=== PATIENT | male | born 1965 | race Caucasian/White ===

== ENCOUNTER 2020-05-27 10:32 | Emergency (ER) | payer OTHER ==
[2020-05-27] MEDS ORDERED: KETOROLAC TROMETHAMINE 30 MG/1 ML VIAL IVPUSH ONE (10:39)
[2020-05-27] MEDS ORDERED: ONDANSETRON 4 MG/2 ML VIAL IVPUSH ONE (10:39)
[2020-05-27] MEDS ORDERED: SODIUM CHLORIDE 1,000 ML IV STA (10:39)
[2020-05-27] MEDS ORDERED: KETOROLAC TROMETHAMINE 30 MG/1 ML VIAL ONE (10:40)
[2020-05-27 10:41] VITALS: TEMP 97.8; BMI 27.6
[2020-05-27] MEDS ORDERED: KETOROLAC TROMETHAMINE 15 MG/ML VIAL IVPUSH ONE (10:42)
--- NOTE | 2020-05-27 10:42 | PDOC ---
Documentation entered by Brittany Lindsay SCRIBE, acting as scribe for Tamica Roy MD. Tamica Roy MD: This documentation has been prepared by the Angélica denise Adrianna, SCRIBE, under my direction and personally reviewed by me in its entirety. I confirm that the documentation accurately reflects all work, treatment, procedures, and medical decision making performed by me. History of Present Illness - General Chief Complaint: Pain Stated Complaint: KIDNEY STONE History Source: Patient Exam Limitations: No Limitations - History of Present Illness Initial Comments: The patient is a 55 year old male, with a significant PMH of HLD, kidney stones, and pre-DM, presenting with right inguinal and flank pain since this morning. Patient complains of right inguinal/groin pain that radiates to his right flank for 1.5 hours. He describes the pain as sharp, constant, and a 10/10 in nature. Patient endorses associated diaphoresis, nausea and states he tried to vomit but couldnt as he didnt have anything in his stomach. Patient has had kidney stones in the past, and notes this feels like his prior episodes without known complications. His last episode was in 2017, and he notes he passed the stone at that time. His pain was persistent this morning, so he went to [facility] and was sent to [facility] for further evaluation. Denies fever, chills, chest pain, SOB, palpitation, dizziness, weakness, N, V, D, abdominal pain, bladder and bowel problems, focal weakness/paresthesias, leg swelling/pain, rash. No sick contacts or travel. No new changes in medications. No suspicious food intake Allergies: None Past Medical History/PSH: HLD, kidney stones, pre-DM, and right RCR Social history: Lives with family. No tobacco, ETOH or drug use. Meds: as documented in EMR Family history: noncontributory PMD: Dr. Maharaj Urologist: Dr. Maciel Review of systems Constitutional: +diaphoretic. no fevers or chills. No weakness HEENT: no headache or dizziness. No congestion. No visual/hearing disturbances. CVS: no cp or syncope. Resp: no sob. No cough. Gastrointestinal: +nausea. +dry-heaving. +flank pain. no abdominal pain, nausea, vomiting, diarrhea. Genitourinary: +right inguinal/testicular pain. no urinary sx, hematuria. no urgency or frequency, dysuria. MUSCULOSKELETAL: No joint pain and swelling. No neck pain. SKIN: no redness or skin changes, no discharge, no rash. No wounds. Hematologic: no easy bruising/bleeding. NEUROLOGIC: No headache, dizziness, LOC or altered mental status. No weakness, numbness or tingling. Psych: no anxiety or depression Allergic/Immunologic: no allergies All other systems reviewed and negative, or as documented in HPI. Physical exam General: +Mild distress 2/2 pain and colicky. awake and alert. HEENT: NCAT, PERRL, EOMI, clear conjunctiva, anicteric, moist mucus membranes, clear oropharynx, no oral lesions.. Neck: neck supple, FROM Resp: CTAB, normal and even respirations, no respiratory distress CVS: RRR, no murmurs, 2+ peripheral pulses throughout, no peripheral edema Abdomen: +right CVAT. soft, NTND, no rebound or guarding. no RLQ tenderness, no Riddle's sign. Back: nontender, normal inspection and ROM MSK: no edema, NGUYEN x4, ROM intact. No clubbing or cyanosis. normal bulk and tone. Extremities: no calf tenderness Neuro: alert, oriented appropriately; no focal neurologic deficits Psych: Calm and cooperative Skin: warm and well perfused, cap refill <2 sec, normal color 05/27/20 14:01 05/27/20 14:11 Past History - Medical History Allergies/Adverse Reactions: Allergies Allergy/AdvReac Type Severity Reaction Status Date / Time No Known Allergies Allergy Unverified 05/27/20 10:41 Home Medications: Ambulatory Orders Cephalexin Monohydrate [Keflex -] 500 mg PO BID #14 capsule 05/27/20 Ibuprofen 600 mg PO QID PRN #20 tablet 05/27/20 Ondansetron [Zofran *Odt*] 4 mg SL TID PRN #9 od.tablet 05/27/20 Oxycodone HCl 10 mg PO TID PRN #9 tablet MDD 3 05/27/20 Tamsulosin HCl [Flomax -] 0.4 mg PO DAILY #7 cap 05/27/20 Heart Score/ECG Review #1 ECG reviewed & interpreted by me at: 11:10 General ECG Interpretation: Sinus Rhythm, Normal Rate, Normal Intervals 05/27/20 11:26 EKG normal sinus rhythm 66 bpm, no interval abnormalities, narrow QRS, ST and T wave segments and morphology normal. ED Treatment Course - LABORATORY CBC & Chemistry Diagram: 05/27/20 10:30 05/27/20 10:30 Medical Decision Making - Medical Decision Making 05/27/20 10:41 Vital Signs Temp Pulse Resp BP Pulse Ox 97.8 F 68 17 158/90 100 05/27/20 10:38 05/27/20 10:38 05/27/20 10:38 05/27/20 10:38 05/27/20 10:38 vitals signs reviewed, wnl hypertensive no tachy no respiratory distress high suspicion for ureteral colic, prior kidney stone that was uncomplicated and passed stone unremarkably. DDx abdominal pain: Renal colic, biliary colic, metabolic/electrolyte derangements. GERD, PUD, esophageal spasm, pancreatitis, hepatitis, constipation, colitis, gastroenteritis, cholecystitis, UTI, pyelonephritis, medication side effect, hernia, appendicitis, diverticulitis. msk strain, mesenteric adenitis, psoas abscess. - no RUQ or s/s to suggest biliary - no RLQ tenderness to suggest appy. - no peritoneal or abdominal sx +Right CVAT is noted, appearing colicky - suspicious for ureteral colic. Clinically the patient presents with symptomatic ureterolithiasis (kidney stones), similar sx as prior kidney stone that was uncomplicated. IV pain medications, antiemetics, and IV fluids were given. A renal and testicular/scrotal sono was obtained for concern for a possible obstructing kidney stone and to rule out other pathologic conditions including testicular pathology/infection/torsion. US confirmed revealed hydronephrosis, no stones visualized. The patient's labs were significant for normal wbc ct, normal Cr and lytes. UA with blood, ?wbcs and rbcs - f/u urine culture, treat with keflex pre-emptively in case of concurrent infection . With pain medication the patient improved significantly. The patient is referred to Dr Maciel for follow up and is discharged with oral narcotics for pain control, Flomax, antiemetics, and given the following return precautions: Fever > 100.5, pain not controlled with narcotics, worsening pain, dehydration, vomiting or any other concerns and to strain the urine. NSAIDS/tylenol for mild to moderate pain, rx oxycodone PRN for more severe pain. zofran for nausea, adequate hydration and oral fluids and air conditioning in hot weather. urine strainer to catch urine. 05/27/20 13:19 05/27/20 14:02 05/27/20 14:12 Discharge - Discharge Information Problems reviewed: Yes Clinical Impression/Diagnosis: Hydronephrosis of right kidney, Ureteral colic Condition: Improved Disposition: HOME - Admission No - Additional Discharge Information Prescriptions: Tamsulosin HCl [Flomax -] 0.4 mg PO DAILY #7 cap Ibuprofen 600 mg PO QID PRN #20 tablet PRN Reason: Pain Level 4 - 6 Cephalexin Monohydrate [Keflex -] 500 mg PO BID #14 capsule Oxycodone HCl 10 mg PO TID PRN #9 tablet MDD 3 PRN Reason: Severe Pain Ondansetron [Zofran *Odt*] 4 mg SL TID PRN #9 od.tablet PRN Reason: nausea vomiting - Follow up/Referral Referrals: Donavan Maharaj MD [Primary Care Provider] - Dionte Maciel MD [Staff Physician] - - Patient Discharge Instructions Patient Printed Discharge Instructions: DI for Kidney Stones Additional Instructions: Discharge for patients: Your kidney ultrasound was significant for swelling of collecting system, suggestive of kidney stone/obstruction your testicular ultrasound was unremarkable, there is some nonspecific fluid around the testicles, no torsion or twisting of the testicle or signs of infection there Drink plenty of water/fluids, avoid caffeine or alcohol Strain all urine for the next 1-2 days and save any stone for analysis Ibuprofen/naproxen/acetaminophen as needed for fijp-yc-[id number] pain. Use Motrin (also called Ibuprofen or Advil) 400 mg every 6 hours as needed for pain. If you have any stomach discomfort while taking Motrin, you can use TUMS to help. Flomax at nighttime to facilitate the passage of your suspected kidney stone, take at nighttime before bedtime. Oxycodone every 6 hours as needed for severe pain; Please do not drive or operate heavy machinery while on this medication because it can impair your judgement. This is a very addictive medication, do not take it unless you ab solutely have to. take keflex twice a day x 1 week for possible infection, follow up on your urine culture Return to ER if you experience persistent pain/vomiting/fever/dehydration, difficulty urinating or inability to tolerate oral intake. Follow-up with your primary doctor and/or Dr Maciel, your urologist, within the next 2-3 days. Urologist follow up this week, referral given as well. (we will give you a list of urologists, but make sure they accept your insurance). Please bring your labs and imaging with you to your appointment. - Post Discharge Activity
[2020-05-27 11:16] LABS: BASO % 0.8 % (0-2.0); EOS % 4.2 % (0-4.5); HEMATOCRIT 48.8 % (35.4-49); HEMOGLOBIN 16.2 GM/dL (11.7-16.9); LYMPH % 17.1 % (8-40); MCH 28.4 pg (25.7-33.7); MCHC 33.2 g/dl (32.0-35.9); MEAN CELL VOLUME 85.5 fl (80-96); MEAN PLT VOLUME 8.4 fl (7.5-11.1); MONO % 8.9 % (3.8-10.2); PLATELET COUNT 282 K/MM3 (134-434); RBC 5.71 M/mm3 (4.00-5.60); RDW 13.4 % (11.9-15.9); WHITE BLOOD COUNT 8.1 K/mm3 (4.0-10.0)
[2020-05-27 11:21] LABS: INR 0.97 (0.83-1.09); PROTHROMBIN TIME (PATIENT) 11.5 SEC (9.7-13.0)
[2020-05-27 11:23] LABS: URINE APPEARANCE CLOUDY; URINE BILIRUBIN NEGATIVE (NEGATIVE); URINE COLOR DK YELLOW; URINE GLUCOSE (UA) 1+ (NEGATIVE); URINE KETONE TRACE (NEGATIVE); URINE LEUK ESTERASE NEGATIVE (NEGATIVE); URINE NITRITE NEGATIVE (NEGATIVE); URINE PROTEIN 1+ (NEGATIVE)
[2020-05-27 11:24] LABS: ACTIVATED PTT 29.7 SECONDS (25.2-36.5)
[2020-05-27] MEDS ORDERED: morphine CARPU-JECT 4 MG/1 ML DISP.SYRIN IVPUSH ONE (11:24)
[2020-05-27 11:46] LABS: ALBUMIN 4.2 g/dl (3.4-5.0); BILIRUBIN,TOTAL 0.7 mg/dL (0.2-1); BLOOD UREA NITROGEN 25.4 mg/dL (7-18); CALCIUM 9.3 mg/dL (8.5-10.1); POTASSIUM 4.4 mmol/L (3.5-5.1)
[2020-05-27] MEDS ORDERED: morphine SULFATE 4 MG/ML VIAL ONE (11:49)
--- NOTE | 2020-05-27 12:07 | EKG ---
Test Reason : Blood Pressure : / mmHG Vent. Rate : 066 BPM Atrial Rate : 066 BPM P-R Int : 138 ms QRS Dur : 102 ms QT Int : 396 ms P-R-T Axes : 033 043 053 degrees QTc Int : 415 ms NORMAL SINUS RHYTHM INCOMPLETE RIGHT BUNDLE BRANCH BLOCK BORDERLINE ECG Confirmed by MD CARROLL, DIOMEDES ([id number]) on 05/27/2020 12:07:08 PM Referred By: Confirmed By:DIOMEDES HODGES MD
[2020-05-27 12:20] LABS: EPI CELLS 6.2 /uL (0-25.1); HYALINE CASTS 2.95 /uL (0-3.1); URINE BACTERIA 8.6 /uL (0-1359); URINE RBC 22.2 /uL (0-23.9)
[2020-05-27 12:22] LABS: URINE CRYSTALS NON SEEN /hpf
[2020-05-27 13:58] VITALS: BP 147/74; PULSE 78
== END 2020-05-27 13:58 | disposition home or self-care (01) ==
LOC: JER 10:32
PROC: 3E033NZ Introduction of Analgesics, Hypnotics, Sedatives into Peripheral Vein, Percutaneous Approach (ICD-10-PCS; principal; 2020-05-27)
PROC: 3E033GC Introduction of Other Therapeutic Substance into Peripheral Vein, Percutaneous Approach (ICD-10-PCS; 2020-05-27)
PROC: 3E0337Z Introduction of Electrolytic and Water Balance Substance into Peripheral Vein, Percutaneous Approach (ICD-10-PCS; 2020-05-27)
DX: N20.0 Calculus of kidney (principal); N23 Unspecified renal colic
CPT/HCPCS: 36415; 76775-TC; 76870-TC; 80053; 81003; 83690; 85025; 85610; 85730; 86850; 86900; 86901; 87086; 93005; 93010; 99285-25

== ENCOUNTER 2020-05-29 06:07 | Emergency (ER) | payer OTHER ==
[2020-05-29] MEDS ORDERED: SODIUM CHLORIDE 0.9% 500 ML INFUS.BAG IV ONE (06:24)
[2020-05-29] MEDS ORDERED: KETOROLAC TROMETHAMINE 15 MG/ML VIAL IVPUSH ONE (06:24)
--- NOTE | 2020-05-29 06:24 | PDOC ---
Attending Attestation - Resident Resident Name: Nic Muñoz - ED Attending Attestation I have performed the following: I have examined & evaluated the patient, The case was reviewed & discussed with the resident, I agree w/resident's findings & plan, Exceptions are as noted - HPI HPI: 05/29/20 07:39 See resident HPI - Physicial Exam PE: 05/29/20 07:39 Agree with documented exam - Medical Decision Making 05/29/20 07:39 Renal colic in patient with prior hx of nephrolithiasis, seen 2 days ago, diagnosed with same and sent to OP f/u Scheduled for OP ct today but presented early 2/2 pain f/u labs, ua, CT ap nc analgesia dispo per clinical course touch base with Dr. Maciel once studies are resulted Discharge - Discharge Information Problems reviewed: Yes Clinical Impression/Diagnosis: Right flank pain - Follow up/Referral Referrals: Dionte Maciel MD [Primary Care Provider] - - Patient Discharge Instructions Additional Instructions: You were seen in the ER today for flank pain. The CT scans show that you passed the stone. I spoke to Dr. Maciel's associate about your symptoms and findings. Please see Dr. Maciel in office next week. Continue taking the Keflex (antibiotic) that was prescribed. Drink plenty of water. Come back to the ER if you have worsening pain, have difficulty passing urine, have blood in the urine, fever or if any new or concerning symptom develops. Thank you - Post Discharge Activity
--- NOTE | 2020-05-29 06:30 | PDOC ---
History of Present Illness - General Stated Complaint: PAIN - History of Present Illness Initial Comments: The pt is a 55M w/ a history of nephrolithiasis and NIDDM who presents for evaluation of persistent R flank pain. Pt states his pain feels similar to his previous renal stone pain. It is intermittent, R flank/inguinal, sharp, not exacerbated by anything he can identify, and somewhat alleviated by oxycodone. He states he was scheduled for a CT today by his Urologist, Dr. Maciel, but was unable to tolerate the pain until that time. He endorses hematuria but denies dysuria or difficulty with urination. Denies fevers/chills, REYES, vision changes, chest pain, trouble breathing, diarrhea, blood in stool, or changes in sensation. 05/29/20 06:24 Past History - Medical History Allergies/Adverse Reactions: Allergies Allergy/AdvReac Type Severity Reaction Status Date / Time No Known Allergies Allergy Unverified 05/29/20 06:40 Home Medications: Ambulatory Orders Cephalexin Monohydrate [Keflex -] 500 mg PO BID #14 capsule 05/27/20 Ibuprofen 600 mg PO QID PRN #20 tablet 05/27/20 Ondansetron [Zofran *Odt*] 4 mg SL TID PRN #9 od.tablet 05/27/20 Oxycodone HCl 10 mg PO TID PRN #9 tablet MDD 3 05/27/20 Tamsulosin HCl [Flomax -] 0.4 mg PO DAILY #7 cap 05/27/20 COPD: No Kidney Stones: Yes - Psycho-Social/Smoking History Smoking History: Never smoked Have you smoked in the past 12 months: No Review of Systems - Review of Systems Able to Perform ROS?: Yes Comments:: GENERAL/CONSTITUTIONAL: No fever or chills. No weakness HEAD, EYES, EARS, NOSE AND THROAT: No change in vision. No change in hearing. No sore throat CARDIOVASCULAR: No chest pain or shortness of breath RESPIRATORY: Denies cough, hemoptysis GASTROINTESTINAL: No nausea, vomiting, diarrhea or constipation GENITOURINARY: per HPI MUSCULOSKELETAL: No joint or muscle swelling or pain. No neck or back pain SKIN: No rash NEUROLOGIC: No headache, vertigo, loss of consciousness, or change in strength/sensation ENDOCRINE: No increased thirst. No abnormal weight change HEMATOLOGIC/LYMPHATIC: No anemia, easy bleeding, or history of blood clots ALLERGIC/IMMUNOLOGIC: No hives or skin allergy 05/29/20 06:30 Is the patient limited Korean proficient: No *Physical Exam - Physical Exam GENERAL: Awake, alert, and oriented to person/place/time, in no acute distress HEAD: No signs of trauma, normocephalic, atraumatic EYES: PERRLA, EOMI, sclera anicteric, conjunctiva clear ENT: Hearing grossly normal, nares patent, oropharynx clear without exudates. Moist mucosa LUNGS: No distress, speaks in full sentences, clear to auscultation bilaterally HEART: Regular rate and rhythm, normal S1 and S2, no murmurs appreciated, peripheral pulses normal and equal bilaterally ABDOMEN: Soft, protuberant, R flank/inguinal TTP w/o rebound or guarding, normoactive bowel sounds EXTREMITIES: Normal inspection, Normal range of motion, no edema. No clubbing or cyanosis NEUROLOGICAL: Cranial nerves II through XII grossly intact. Normal speech, no focal sensorimotor deficits SKIN: Warm, Dry 05/29/20 06:31 ED Treatment Course - LABORATORY CBC & Chemistry Diagram: 05/29/20 06:29 05/29/20 06:29 - RADIOLOGY Radiology Studies Ordered: Category Date Time Status SPIRAL- RENAL-STONE CT [CT] Stat CT Scan 05/29/20 06:24 Ordered Medical Decision Making - Medical Decision Making The pt is a 55M w/ a history of nephrolithiasis and NIDDM who presents for evaluation of persistent R flank pain likely 2/2 nephrolithiasis. Ddx: consider UTI/pyelo, infected stone, obstructing stone. Not likely appendicitis given pt's history ED Course CMP, CBC, UA, UCx CT A&P IVF, Toradol 15mg IV once for pain 05/29/20 06:32 Pt signed out to day team Discharge - Discharge Information Problems reviewed: Yes Clinical Impression/Diagnosis: Right flank pain - Follow up/Referral Referrals: Dionte Maciel MD [Primary Care Provider] - - Patient Discharge Instructions Additional Instructions: You were seen in the ER today for flank pain. The CT scans show that you passed the stone. I spoke to Dr. Maciel's associate about your symptoms and findings. Please see Dr. Maciel in office next week. Continue taking the Keflex (antibiotic) that was prescribed. Drink plenty of water. Come back to the ER if you have worsening pain, have difficulty passing urine, have blood in the urine, fever or if any new or concerning symptom develops. Thank you - Post Discharge Activity
[2020-05-29] MEDS ORDERED: KETOROLAC TROMETHAMINE 15 MG/ML VIAL ONE (06:36)
[2020-05-29 06:42] VITALS: BMI 25.8
[2020-05-29 06:52] LABS: BASO % 0.5 % (0-2.0); EOS % 2.7 % (0-4.5); HEMATOCRIT 45.7 % (35.4-49); HEMOGLOBIN 15.2 GM/dL (11.7-16.9); LYMPH % 15.2 % (8-40); MCH 28.4 pg (25.7-33.7); MCHC 33.1 g/dl (32.0-35.9); MEAN CELL VOLUME 85.7 fl (80-96); MEAN PLT VOLUME 8.2 fl (7.5-11.1); MONO % 9.8 % (3.8-10.2); NEUT % 71.8 % (42.8-82.8); PLATELET COUNT 247 K/MM3 (134-434); RBC 5.33 M/mm3 (4.00-5.60); RDW 13.5 % (11.9-15.9); WHITE BLOOD COUNT 12.2 K/mm3 (4.0-10.0)
[2020-05-29 07:03] LABS: EPI CELLS 10 /uL (0-25.1); HYALINE CASTS 2 /uL (0-3.1); URINE APPEARANCE CLOUDY; URINE BACTERIA 4 /uL (0-1359); URINE BILIRUBIN NEGATIVE (NEGATIVE); URINE COLOR YELLOW; URINE GLUCOSE (UA) 1+ (NEGATIVE); URINE KETONE NEGATIVE (NEGATIVE); URINE LEUK ESTERASE TRACE (NEGATIVE); URINE NITRITE NEGATIVE (NEGATIVE); URINE PROTEIN 1+ (NEGATIVE); URINE UROBILINOGEN 0.2 mg/dL (0.2-1.0); URINE WBC 41 /uL (0-25.8)
--- NOTE | 2020-05-29 07:15 | PDOC ---
*Physical Exam - Vital Signs Last Vital Signs Temp Pulse Resp BP Pulse Ox 98.4 F 70 20 162/98 98 05/29/20 06:41 05/29/20 06:41 05/29/20 06:41 05/29/20 06:41 05/29/20 06:41 ED Treatment Course - LABORATORY CBC & Chemistry Diagram: 05/29/20 06:29 05/29/20 06:29 - ADDITIONAL ORDERS Additional order review: Laboratory Results 05/29/20 06:29 Urine Color Yellow Urine Appearance Cloudy Urine pH 5.0 Ur Specific [place] 1.021 Urine Protein 1+ H Urine Glucose (UA) 1+ H Urine Ketones Negative Urine Blood 3+ H Urine Nitrite Negative Urine Bilirubin Negative Urine Urobilinogen 0.2 Ur Leukocyte Esterase Trace Urine WBC (Auto) 41 Urine Casts (Auto) 2 U Epithel Cells (Auto) 10 Urine Bacteria (Auto) 4 05/29/20 06:29 RBC 5.33 MCV 85.7 MCHC 33.1 RDW 13.5 MPV 8.2 Neutrophils % 71.8 Lymphocytes % 15.2 Monocytes % 9.8 Eosinophils % 2.7 Basophils % 0.5 - Medications Given in the ED: ED Medications Discontinued Medications Generic Name Dose Route Start Last Admin Trade Name Freq PRN Reason Stop Dose Admin Ketorolac Tromethamine 15 mg 05/29/20 06:24 05/29/20 06:42 Toradol Injection - IVPUSH 05/29/20 06:25 15 mg ONCE ONE Administration Sodium Chloride 1,000 ml 05/29/20 06:24 05/29/20 06:41 Normal Saline - IV 05/29/20 06:25 1,000 ml ONCE ONE Administration Medical Decision Making - Medical Decision Making 05/29/20 07:13 sign out. 55y M with PMH of nephrolithiasis and NIDDM who presents for evaluation of persistent R flank pain. Pt was to get outpt CT today but came to ER due to pain. -given toradol and fluids. labs show mild leukocytosis. UA negative for infection. chem pending. CT pending. will call urology with results. 05/29/20 08:[address] showing mild right hydronephrosis and perinephric edema may be due to recently passed stone. pt still in pain. says pain in in the R testicle and goes up to the groin and to the kidney. denies n/v, denies testicular swelling or discharge. recent circumcision 04/2020 but no penile pain. exam negative for testicular tenderness, no penile discharge. genitalia appear normal. tenderness to deep palpation in RLQ. Mild CVA tenderness. will call urology with results morphine for pain control CTA abdomen for evaluation for possible dissection/aneurysm or renal infarct. urology aware. 05/29/20 19:50 CT shows r perinephric edema and mild hydronephrosis [place] passed stone. no other acute pathology. pt not in pain, feels better. discussed results. discussed results with urology. pt to f/u next week. continue taking Keflex. return precautions provided. DC home Discharge - Discharge Information Problems reviewed: Yes Clinical Impression/Diagnosis: Right flank pain Condition: Improved Disposition: HOME - Admission No - Follow up/Referral Referrals: Dionte Maciel MD [Primary Care Provider] - - Patient Discharge Instructions Additional Instructions: You were seen in the ER today for flank pain. The CT scans show that you passed the stone. I spoke to Dr. Maciel's associate about your symptoms and findings. Please see Dr. Maciel in office next week. Continue taking the Keflex (antibiotic) that was prescribed. Drink plenty of water. Come back to the ER if you have worsening pain, have difficulty passing urine, have blood in the urine, fever or if any new or concerning symptom develops. Thank you - Post Discharge Activity Vital Signs - Vital Signs Blood Pressure: 130/80 BP Location: Right Arm
[2020-05-29 07:23] LABS: ALBUMIN 3.6 g/dl (3.4-5.0); BILIRUBIN,TOTAL 0.3 mg/dL (0.2-1); BLOOD UREA NITROGEN 25.3 mg/dL (7-18); CALCIUM 9.1 mg/dL (8.5-10.1); POTASSIUM 4.6 mmol/L (3.5-5.1); TOT PROT 6.5 g/dl (6.4-8.2)
[2020-05-29] MEDS ORDERED: morphine CARPU-JECT 4 MG/1 ML DISP.SYRIN IVPUSH ONE (08:11)
[2020-05-29] MEDS ORDERED: MORPHINE SULFATE 2 MG/ML VIAL ONE (08:19)
[2020-05-29 12:08] LABS: URINE RBC 183.1 /uL (0-23.9)
[2020-05-29 12:45] VITALS: PULSE 76; TEMP 98.5
[2020-05-29 19:51] VITALS: BP 130/80
== END 2020-05-29 12:46 | disposition home or self-care (01) ==
LOC: JER 06:07
PROC: 3E033GC Introduction of Other Therapeutic Substance into Peripheral Vein, Percutaneous Approach (ICD-10-PCS; principal; 2020-05-29)
DX: R10.9 Unspecified abdominal pain (principal)
CPT/HCPCS: 36415; 74174-TC; 74176-TC; 80053; 81003; 85025; 87086; 99285-25; Q9967

== ENCOUNTER 2020-08-23 16:57 | Emergency (ER) | payer OTHER ==
[2020-08-23 17:04] VITALS: TEMP 97.3; BMI 26.5
--- OUTSIDE RECORDS SUMMARY | 2020-08-23 17:11 | XMS ---
:1965 Author Organization [facility] Support Name Relationship Address Phone N [employer] Unavailable [address] [place] [address] FRANTZ ELLIS [address] [place] [address] FRANTZ ELLIS Spouse [address] [place] [address] Re-disclosure Warning The records that you are about to access may contain information from federally- assisted alcohol or drug abuse programs. If such information is present, then the following federally mandated warning applies: This information has been disclosed to you from records protected by federal confidentiality rules (42 CFR part 2). The federal rules prohibit you from making any further disclosure of this information unless further disclosure is expressly permitted by the written consent of the person to whom it pertains or as otherwise permitted by 42 CFR part 2. A general authorization for the release of medical or other information is NOT sufficient for this purpose. The Federal rules restrict any use of the information to criminally investigate or prosecute any alcohol or drug abuse patient.The records that you are about to access may contain highly sensitive health information, the redisclosure of which is protected by Article 27-F of the [facility] Public Health law. If you continue you may haveaccess to information: Regarding HIV / AIDS; Provided by facilities licensed or operated by the [facility] Office of Mental Health; or Provided by the [facility] Office for People With Developmental Disabilities. If such information is present, then the following [facility] mandated warning applies: This information has been disclosed to you from confidential records which are protected by state law. State law prohibits you from making any further disclosure of this information without the specific written consent of the person to whom it pertains, or as otherwise permitted by law. Any unauthorized further disclosure in violation of state law may result in a fine or mcc sentence or both. A general authorization for the release of medical or other information is NOT sufficient authorization for further disclosure. Insurance Providers Payer name Policy type Policy ID Covered Covered green party's Policy P trinity / Coverage green party ID relationship to [employer] ormation type zurita CAPUTA [id number] 1 [employer]ALTH PLANS Results ID Date Data Source [id number] 08/12/2020 02:35:00 PM EDT [facility] Name Value Range Interpretation Code Description Data Carolann rce(s) Supporting Document(s ) SARS-COV-2 [facility] QL RED+PROBE This lab was ordered by CAYETANO adams nd reported by [email or web address]. ID Date Data Source [id number] 08/05/2020 12:15:00 AM EDT [facility] Name Value Range Interpretation Code Description Data Carolann rce(s) Supporting Document(s ) SARS-COV-2 [facility] QL RED+PROBE This lab was ordered by CAYETANO adams nd reported by [email or web address]. ID Date Data Source [id number] 04/09/2020 10:56:00 AM EDT [facility] Name Value Range Interpretation Code Description Data Carolann rce(s) Supporting Document(s ) COV2 [facility] This lab was ordered by CAYETANO adams nd reported by [employer] [place]. Procedure
--- NOTE | 2020-08-23 17:16 | PDOC ---
History of Present Illness - General Chief Complaint: Seizure Stated Complaint: SEIZURE Time Seen by Provider: 08/23/20 17:09 - History of Present Illness Initial Comments: HPI: 08/23/20 17:16 55 yo M PMH nephrolithiasis, NIDDM, R rotator cuff repair 15 years ago, presenting with syncope. Mr. Hauser states that he was sitting at his relative's house on the couch, pressing the right side of his neck because of a little tickle in his throat, woke up about a minute later without memory of passing out. This happened at approximately 1330. No post-ictal state. Never happened before. Currently, endorses only mild lightheadedness. Denies CP, SOB, N/V, fevers/chills, constipation/diarrhea. ROS: GENERAL/CONSTITUTIONAL: denies fever, chills, diaphoresis, generalized weakness HEAD, EYES, EARS, NOSE AND THROAT: denies rhinorrhea, nasal congestion NEUROLOGIC: denies headache, focal weakness, dizziness, mental status changes CARDIOVASCULAR: endorses lightheadedness and syncope. Denies chest pain, palpi tations, irregular heart rate, lightheadedness, peripheral edema RESPIRATORY: denies cough, shortness of breath, dyspnea with exertion, orthopnea, wheezing, stridor, hemoptysis GASTROINTESTINAL: denies abdominal pain, abdominal distension, nausea, vomiting, diarrhea, constipation, melena, hematochezia GENITOURINARY: denies dysuria, frequency, urgency, hesitancy, hematuria, flank pain, genital pain MUSCULOSKELETAL: denies myalgia, arthralgia, joint swelling, back pain, neck pain SKIN: denies rash, itching HEMATOLOGIC/IMMUNOLOGIC: denies easy bleeding, easy bruising, lymphadenopathy, frequent infections ENDOCRINE: denies unexplained weight gain, unexplained weight loss, heat intolerance, cold intolerance PSYCHIATRIC: denies anxiety, depression, suicidal or homicidal ideation, hallucinations PE: Gen: well-developed, well-nourished, NAD Neuro: AAOX4, CN II-XII intact HEENT: atraumatic, normocephalic, dry mucous membranes Neck: trachea midline, supple CV: regular rate, regular rhythm, no murmurs, rubs, or gallops Pulm: CTA b/l, no wheezing Abd: soft, non-distended, non-tender MSK: full ROM, intact pulses Extr: no edema, no deformities Skin: warm, dry MDM: Concern for potential ACS considering syncope. Was conducting carotid massage, may have been vagal response. - CBC, CMP - EKG, CXR - cardiac profile - reassess 08/23/20 18:24 CBC unconcerning. 08/23/20 18:27 EKG normal sinus at 77 bpm, WA 158, QRS 104, QTc 427. 08/23/20 18:52 Glucose 221, CMP otherwise unremarkable. Trop negative. Will give 1L LR, get repeat trop in 2 hours. 08/23/20 19:00 Patient signed out to night team, follow up repeat trop, likely dc afterwards. Past History - Medical History Allergies/Adverse Reactions: Allergies Allergy/AdvReac Type Severity Reaction Status Date / Time No Known Allergies Allergy Unverified 08/23/20 17:03 Home Medications: Ambulatory Orders Cephalexin Monohydrate [Keflex -] 500 mg PO BID #14 capsule 05/27/20 Ibuprofen 600 mg PO QID PRN #20 tablet 05/27/20 Ondansetron [Zofran *Odt*] 4 mg SL TID PRN #9 od.tablet 05/27/20 Oxycodone HCl 10 mg PO TID PRN #9 tablet MDD 3 05/27/20 Tamsulosin HCl [Flomax -] 0.4 mg PO DAILY #7 cap 05/27/20 COPD: No Diabetes: Yes (NIDDM) Kidney Stones: Yes - Immunization History Immunization Up to Date: Yes - Psycho-Social/Smoking History Smoking History: Never smoked Have you smoked in the past 12 months: No *Physical Exam - Vital Signs Last Vital Signs Temp Pulse Resp BP Pulse Ox 97.3 F L 73 18 115/84 99 08/23/20 17:00 08/23/20 17:00 08/23/20 17:00 08/23/20 17:00 08/23/20 17:00 ED Treatment Course - LABORATORY CBC & Chemistry Diagram: 08/23/20 18:05 08/23/20 18:05 Discharge - Discharge Information Problems reviewed: Yes Clinical Impression/Diagnosis: Vasovagal syncope, Carotid artery hypersensitivity Condition: Good Disposition: HOME - Follow up/Referral Referrals: Morales Pate MD [Staff Physician] - - Patient Discharge Instructions Patient Printed Discharge Instructions: DI for Syncope in Adults (Fainting) Additional Instructions: You were seen in the ER because you fainted. You received labs and imagining all of which were unremarkable. You were considered medically stable and safe to return home. When you return home please avoid vigorously massaging your neck and be sure to drink plenty of fluids and eat a normal diet. Please take any home medications as directed. Please follow up with your primary care physician regarding your stay here. Please also follow up with a heel seam rubber, Dr. Pate regarding you visit to the emergency room. WHAT YOU NEED TO KNOW: Syncope is also called fainting or passing out. Syncope is a sudden, temporary loss of consciousness, followed by a fall from a standing or sitting position. Syncope ranges from not serious to a sign of a more serious condition that needs to be treated. You can control some health conditions that cause syncope. Your healthcare providers can help you create a plan to manage syncope and prevent episodes. DISCHARGE INSTRUCTIONS: Seek care immediately if: * You are bleeding because you hit your head when you fainted. * You suddenly have double vision, difficulty speaking, numbness, and cannot move your arms or legs. * You have chest pain and trouble breathing. * You vomit blood or material that looks like coffee grounds. * You see blood in your bowel movement. * You have new or worsening symptoms. * You have another syncope episode. * You have a headache, fast heartbeat, or feel too dizzy to stand up. * You have questions or concerns about your condition or care - Post Discharge Activity
[2020-08-23 18:15] LABS: BASO % 0.7 % (0-2.0); EOS % 3.3 % (0-4.5); HEMATOCRIT 47.9 % (35.4-49); HEMOGLOBIN 16.6 GM/dL (11.7-16.9); MCH 29.2 pg (25.7-33.7); MCHC 34.5 g/dl (32.0-35.9); MEAN CELL VOLUME 84.5 fl (80-96); MEAN PLT VOLUME 7.7 fl (7.5-11.1); MONO % 9.2 % (3.8-10.2); NEUT % 66.8 % (42.8-82.8); PLATELET COUNT 255 K/MM3 (134-434); RBC 5.68 M/mm3 (4.00-5.60); RDW 14.8 % (11.9-15.9); WHITE BLOOD COUNT 6.8 K/mm3 (4.0-10.0)
--- NOTE | 2020-08-23 18:17 | PDOC ---
Documentation entered by Baltazar Rome SCRIBE, acting as scribe for Mir Morales MD. Mir Morales MD: This documentation has been prepared by the scribe, Baltazar Rome SCRIBE, under my direction and personally reviewed by me in its entirety. I confirm that the documentation accurately reflects all work, treatment, procedures, and medical decision making performed by me. Attending Attestation - Resident Resident Name: Michelle Acosta - ED Attending Attestation I have performed the following: I have examined & evaluated the patient, The case was reviewed & discussed with the resident, I agree w/resident's findings & plan, Exceptions are as noted - HPI HPI: 08/23/20 17:47 The patient is a 55 year old male with a significant past medical history of nephrolithiasis and NIDDM who presents to the emergency department for evaluation of syncope that began four hours ago today. The pt was in his usual state of health until approx this morning, he felt alittle nauseus for a few minutes. Then he was sitting on the couch, rubbing his neck when he suddenly felt very relaxed, and per , had his head back, and passed out and was shaking. His was shaking him to wake him up and he was alert, and awake, recalled rubbing his neck and feeling relaxed, but did not remember shaking/passing out. He denies any associated sob, palpitations, focal numbness/tingling/weakness, vomiting, diaphroesis, neck pain, back pain, abd pain, dairrhea, melena, bpr, fever/chills, cough. No recent sick contacts. No prior history of exertional sob/cp. social: denies smoking, recreational drug use. +social etoh PMD:Dr irizarry family hx: no family hx of CAD, father has ?aortic aneurysm - Physicial Exam PE: 08/23/20 17:23 GENERAL: The patient is awake, alert, and fully oriented, Nontoxic - in no acute distress. HEAD: Normocephalic, atraumatic. EYES: extraocular movements intact, sclera anicteric, conjunctiva clear. ENT: Normal voice, Moist mucous membranes. NECK: Normal range of motion, supple without lymphadenopathy, JVD, or masses. LUNGS: Breath sounds equal, clear to auscultation bilaterally. No wheezes, no crackles, no rales. HEART: Regular rate and rhythm, normal S1 and S2 without murmur, rub or gallop. ABDOMEN: Soft, nontender, normoactive bowel sounds. No guarding, no rebound. No masses. EXTREMITIES: Normal range of motion, no edema. No clubbing or cyanosis. No cords, erythema, or tenderness. NEUROLOGICAL: No facial asymmetry, Normal speech, normal gait. PSYCH: Normal mood, normal affect. SKIN: Warm, Dry, normal turgor, no rashes or lesions noted. - Medical Decision Making 08/23/20 17:37 ddx includes but is not limted vasovagal episode, consider anemia, metabolic derangement will obtain tropx 2, ekg to screen for acs pt placed on bus monitor to screen fora rrythmia will reasess, if pt asymptmatic will dc wiht cardiology fu Heart Score/ECG Review - ECG Impressions Comment:: 08/23/20 18:44 Twelve-lead EKG was performed and reviewed by me. There is normal sinus rhythm with a normal rate. raTE OF 77 The axis is normal. The intervals are normal. There is normal R wave progression There are no ST or T wave abnormalities. Impression: Normal twelve-lead EKG
[2020-08-23 18:34] LABS: ALK PHOS 86 U/L (45-117); ANION GAP 6 MMOL/L (8-16); BILIRUBIN,TOTAL 0.4 mg/dL (0.2-1); BLOOD UREA NITROGEN 21.8 mg/dL (7-18); CHLORIDE 107 mmol/L (98-107); CO2 26 mmol/L (21-32); CREATININE 0.8 mg/dL (0.55-1.3); GLUCOSE,RANDOM 221 mg/dL (74-106); POTASSIUM 4.1 mmol/L (3.5-5.1); SGOT/AST 16 U/L (15-37); SGPT/ALT 27 U/L (13-61); SODIUM 139 mmol/L (136-145)
[2020-08-23] MEDS ORDERED: LACTATED RINGERS SOLUTION 1,000 ML/1,000 ML INFUS.BAG IV STA (18:53)
--- NOTE | 2020-08-23 19:05 | PDOC ---
*Physical Exam - Vital Signs Last Vital Signs Temp Pulse Resp BP Pulse Ox 97.3 F L 73 18 115/84 99 08/23/20 17:00 08/23/20 17:00 08/23/20 17:00 08/23/20 17:00 08/23/20 17:00 ED Treatment Course - LABORATORY CBC & Chemistry Diagram: 08/23/20 18:05 08/23/20 18:05 - ADDITIONAL ORDERS Additional order review: Laboratory Results 08/23/20 18:05 Sodium 139 Potassium 4.1 Chloride 107 Carbon Dioxide 26 Anion Gap 6 L BUN 21.8 H Creatinine 0.8 Est GFR (CKD-EPI)AfAm 116.56 Est GFR (CKD-EPI)NonAf 100.57 Random Glucose 221 H Calcium 9.0 Total Bilirubin 0.4 AST 16 ALT 27 Alkaline Phosphatase 86 Creatine Kinase 122 Troponin I < 0.02 Total Protein 7.0 Albumin 4.0 08/23/20 18:05 RBC 5.68 H MCV 84.5 MCHC 34.5 RDW 14.8 MPV 7.7 Neutrophils % 66.8 Lymphocytes % 20.0 D Monocytes % 9.2 Eosinophils % 3.3 Basophils % 0.7 Medical Decision Making - Medical Decision Making 55 yo M PMH nephrolithiasis, NIDDM, R rotator cuff repair 15 years ago, presenting with syncope. Mr. Hauser states that he was sitting at his relative's house on the couch, pressing the right side of his neck because of a little tickle in his throat, woke up about a minute later without memory of passing out. This happened at approximately 1330. No post-ictal state. Never happened before. Currently, endorses only mild lightheadedness. Denies CP, SOB, N/V, fevers/chills, constipation/diarrhea. - Patient signed out to me by day team - Dispo pending troponin #2 08/23/20 21:42 - Troponin #2 negative - will DC to home with fu Discharge - Discharge Information Problems reviewed: Yes Clinical Impression/Diagnosis: Vasovagal syncope, Carotid artery hypersensitivity Condition: Good Disposition: HOME - Admission No - Follow up/Referral Referrals: Morales Pate MD [Staff Physician] - - Patient Discharge Instructions Patient Printed Discharge Instructions: DI for Syncope in Adults (Fainting) Additional Instructions: You were seen in the ER because you fainted. You received labs and imagining all of which were unremarkable. You were considered medically stable and safe to return home. When you return home please avoid vigorously massaging your neck and be sure to drink plenty of fluids and eat a normal diet. Please take any home medications as directed. Please follow up with your primary care physician regarding your stay here. Please also follow up with a merchandising coordinator, Dr. Pate regarding you visit to the emergency room. WHAT YOU NEED TO KNOW: Syncope is also called fainting or passing out. Syncope is a sudden, temporary loss of consciousness, followed by a fall from a standing or sitting position. Syncope ranges from not serious to a sign of a more serious condition that needs to be treated. You can control some health conditions that cause syncope. Your healthcare providers can help you create a plan to manage syncope and prevent episodes. DISCHARGE INSTRUCTIONS: Seek care immediately if: * You are bleeding because you hit your head when you fainted. * You suddenly have double vision, difficulty speaking, numbness, and cannot move your arms or legs. * You have chest pain and trouble breathing. * You vomit blood or material that looks like coffee grounds. * You see blood in your bowel movement. * You have new or worsening symptoms. * You have another syncope episode. * You have a headache, fast heartbeat, or feel too dizzy to stand up. * You have questions or concerns about your condition or care - Post Discharge Activity
--- NOTE | 2020-08-23 19:49 | PDOC ---
*Physical Exam - Vital Signs Last Vital Signs Temp Pulse Resp BP Pulse Ox 97.3 F L 73 18 115/84 99 08/23/20 17:00 08/23/20 17:00 08/23/20 17:00 08/23/20 17:00 08/23/20 17:00 ED Treatment Course - LABORATORY CBC & Chemistry Diagram: 08/23/20 18:05 08/23/20 18:05 - ADDITIONAL ORDERS Additional order review: Laboratory Results 08/23/20 18:05 Sodium 139 Potassium 4.1 Chloride 107 Carbon Dioxide 26 Anion Gap 6 L BUN 21.8 H Creatinine 0.8 Est GFR (CKD-EPI)AfAm 116.56 Est GFR (CKD-EPI)NonAf 100.57 Random Glucose 221 H Calcium 9.0 Total Bilirubin 0.4 AST 16 ALT 27 Alkaline Phosphatase 86 Creatine Kinase 122 Troponin I < 0.02 Total Protein 7.0 Albumin 4.0 08/23/20 18:05 RBC 5.68 H MCV 84.5 MCHC 34.5 RDW 14.8 MPV 7.7 Neutrophils % 66.8 Lymphocytes % 20.0 D Monocytes % 9.2 Eosinophils % 3.3 Basophils % 0.7 Medical Decision Making - Medical Decision Making 08/23/20 19:46 Pt appears well. He did his own carotid massage and passed out and had LOC and convulsions. All labs normal No carotid bruit. Pt will follow with PMD We are awaiting trop and he is stable to go home, as far as I and Dr. Morales are concerned. I spoke to Dr. Potter and he agrees that pt ought to be stable to go home. And he can follow with Dr. Maharaj Discharge - Discharge Information Problems reviewed: Yes Clinical Impression/Diagnosis: Vasovagal syncope, Carotid artery hypersensitivity - Follow up/Referral - Patient Discharge Instructions Patient Printed Discharge Instructions: DI for Syncope in Adults (Fainting) - Post Discharge Activity
[2020-08-23 22:04] VITALS: BP 120/74; PULSE 72
--- NOTE | 2020-08-24 11:48 | EKG ---
Test Reason : Blood Pressure : / mmHG Vent. Rate : 077 BPM Atrial Rate : 077 BPM P-R Int : 158 ms QRS Dur : 104 ms QT Int : 378 ms P-R-T Axes : 047 053 058 degrees QTc Int : 427 ms NORMAL SINUS RHYTHM NORMAL ECG WHEN COMPARED WITH ECG OF 27-MAY-2020 11:10, NO SIGNIFICANT CHANGE WAS FOUND Confirmed by JASON LUNA MD ([id number]) on 08/24/2020 11:48:22 AM Referred By: Confirmed By:JASON LUNA MD
== END 2020-08-23 22:02 | disposition home or self-care (01) ==
LOC: JER 16:57
PROC: 3E0337Z Introduction of Electrolytic and Water Balance Substance into Peripheral Vein, Percutaneous Approach (ICD-10-PCS; principal; 2020-08-23)
DX: R55 Syncope and collapse (principal); G45.1 Carotid artery syndrome (hemispheric)
CPT/HCPCS: 36415; 71046-TC-FY; 80053; 82550; 84484; 85025; 93005; 93010; 99285-25